=== PATIENT | female | born 1960 | race Two or more races ===

== ENCOUNTER 2018-10-25 10:14 | Emergency (ER) | payer BC ==
[2018-10-25 10:57] VITALS: BP 93/48
--- NOTE | 2018-10-25 11:27 | UC ---
Complaint Female HPI - HPI Summary HPI Summary: Patient has been on Augmentin for a right ear infection and the past 24 hours she has developed some burning on urination, urgency. She denies any fever or chills. She denies any abnormal vaginal discharge. - History Of Current Complaint Chief Complaint: UCGeneralIllness Stated Complaint: URINARY ISSUE Time Seen by Provider: 10/25/18 11:06 Hx Obtained From: Patient Hx Last Menstrual Period: Years ago. ?: No Onset/Duration: Gradual Onset Timing: Constant Severity Initially: Mild Severity Currently: Mild Pain Intensity: 4 Character: Burning - Burning on urination and frequency. Aggravating Factor(s): Urination Alleviating Factor(s): Nothing Associated Signs And Symptoms: Positive: Negative - Allergies/Home Medications Allergies/Adverse Reactions: Allergies Allergy/AdvReac Type Severity Reaction Status Date / Time acetaminophen [From Vicodin] Allergy Hives Verified 10/25/18 10:59 clindamycin Allergy Hives Verified 10/25/18 10:59 hydrocodone [From Vicodin] Allergy Hives Verified 10/25/18 10:59 pseudoephedrine Allergy Hives Verified 10/25/18 11:00 Sulfa (Sulfonamide Allergy Hives Verified 10/25/18 11:00 Antibiotics) LATEX Allergy Rash Uncoded 05/01/16 16:39 PMH/Surg Hx/FS Hx/Imm Hx Previously Healthy: Yes Other History Of: Negative For: HIV, Hepatitis B, Hepatitis C - Surgical History Surgical History: Yes Surgery Procedure, Year, and Place: . lt foot surgery. rt breast LIPOMA removal. DENTAL IMPLANTS - Family History Known Family History: Negative: Cardiac Disease, Hypertension, Diabetes - Social History Alcohol Use: Rare Substance Use Type: None Smoking Status (MU): Never Smoked Tobacco - Immunization History Most Recent Influenza Vaccination: NEVER Most Recent Tetanus Shot: UTD Review of Systems All Other Systems Reviewed And Are Negative: Yes ENT: Positive: Other - Started Augmentin 4 days ago for a right ear infection. Gastrointestinal: Positive: Diarrhea - Patient has had some diarrhea as a result of being on Augmentin for an ear infection. Genitourinary: Positive: Dysuria, Frequency, Urgency. Negative: Hematuria Is Patient Immunocompromised?: No Physical Exam Triage Information Reviewed: Yes Appearance: Well-Appearing, No Pain Distress, Well-Nourished Vital Signs: Initial Vital Signs Temp 98 F 10/25/18 10:54 Pulse 96 10/25/18 10:54 Resp 16 10/25/18 10:54 BP 93/48 10/25/18 10:54 Pulse Ox 100 10/25/18 10:54 Vital Signs Reviewed: Yes Eye Exam: Normal ENT Exam: Normal ENT: Positive: TMs normal Neck exam: Normal Respiratory Exam: Normal Cardiovascular Exam: Normal Abdominal Exam: Normal Abdomen Description: Positive: Nontender, No Organomegaly, Soft Bowel Sounds: Positive: Present Musculoskeletal Exam: Normal Neurological Exam: Normal Psychological Exam: Normal Skin Exam: Normal Complaint Female Dx - Course Course Of Treatment: Patient has been comfortable here. Because she has been on AZO causes urine discoloration the urine will be sent for a culture. At this point because she' s been on the Augmentin for 4 days I believe perhaps she may have a vaginal yeast infection. I'm going to treat her with Diflucan 1 tablet today and repeat in one week for now continued symptoms. She will wait for the urine culture report. She can continue her Augmentin although I gave her the choice since her ear looks completely normal and she would prefer to continue the antibiotic. - Differential Dx/Diagnosis Provider Diagnosis: Yeast cystitis Discharge - Sign-Out/Discharge Documenting (check all that apply): Patient Departure All imaging exams completed and their final reports reviewed: No Studies - Discharge Plan Condition: Fair Disposition: HOME Prescriptions: Fluconazole 150 MG TAB* [Diflucan 150 MG TAB*] 150 mg PO UC ONCE 1 Days #2 tablet Patient Education Materials: Yeast Infection (ED) Referrals: Jodi Martinez MD [Primary Care Provider] - Additional Instructions: Continue taking your antibiotic with food. Increase fluids. We will call you with the urine culture results if it shows that you need another antibiotic. Take the Diflucan today and then repeat in 1 week from now if you have continued symptoms. Follow-up with your primary care provider in 3 or 4 days if no improvement. - Billing Disposition and Condition Condition: FAIR Disposition: Home - Attestation Statements Provider Attestation: I was available for consult. This patient was seen by the TERRI. The patient was not presented to, seen by, or examined by me. -Roland
== END 2018-10-25 11:32 | disposition home or self-care (01) ==
LOC: UCEAST 10:14
DX: B37.41 Candidal cystitis and urethritis (principal); Z88.3 Allergy status to other anti-infective agents; Z88.6 Allergy status to analgesic agent; Z88.2 Allergy status to sulfonamides; Z88.8 Allergy status to other drugs, medicaments and biological substances; Z91.040 Latex allergy status
CPT/HCPCS: 87086; 99212; G0463

== ENCOUNTER 2019-04-19 10:32 | Emergency (ER) | payer BC ==
--- OUTSIDE RECORDS SUMMARY | 2019-04-19 11:07 | XMS REPORT | Continuity of Care Document ---
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 Onset: 09/06/2017 Body mass index 20-24 - normal ROSE Cole Onset: 12/27/2016 Body mass index 20-24 - normal Matthew Pierre M.D. Onset: 05/28/2016 Immunization Matthew Pierre M.D. Onset: 05/28/2016 Allergic rhinitis ROSE Ocasio Onset: 10/07/2015 Allergic rhinitis due to animals ROSE Ocasio Onset: 10/07/2015 Exacerbation of intermittent asthma ROSE Ocasio Onset: 10/07/2015 Body Mass Index Between 19-24 Adult Matthew Pierre M.D. Onset: 02/14/2015 Urticaria Matthew Pierre M.D. Onset: 02/14/2015 Allergic rhinitis due to pollen Matthew Pierre M.D. Onset: 02/14/2015 Allergic asthma without status asthmaticus Matthew Pierre M.D. Onset: 2014 Social History Type Date Description Comments Sex Unknown ETOH Use Occasionally consumes alcohol Tobacco Use Start: Unknown End: Patient is a former smoker Unknown Recreational Drug Use Denies Drug Use Allergies, Adverse Reactions, Alerts Active Allergies Reaction Severity Comments Date Sulfa 11/27/2007 Clindamycin Urticaria 02/14/2015 vicoden Urticaria 02/14/2015 Pseudoephedrine Urticaria, 02/14/2015 Doxycycline Nausea and Vomiting Itching 02/14/2015 Medications Active Medications SIG Qnty Indications Ordering Date Provider Albuterol Sulfate use every 4-6 hours 75ml Z23 Tesha Jose Miguellamberto, 04/16/2019 as needed [employer] 1.25mg/3ML Nebulizer Epinephrine use for anaphyalxis 2units Tesha Zapata, 02/19/2017 [employer]CE[employer] 0.3mg/0.3ML Solution Auto-Inject Albuterol Sulfate use via nebulizer 1box J45.21 Matthew Pierre, 10/07/2015 every 4-6 hours as M.D. (5mg/ML) 0.5% needed for wheeze, Nebulizer chest tightness, cough, shortness of breath Ventolin HFA inhale 2 puffs by 18units J45.20 Tesha Zapata, 02/14/2015 mouth every 4 hours [employer]CE[employer]-C 108(90Base) mcg/Act as needed Aerosol Simvastatin Stevanoelijah, 10mg MD Jodi Tablets Fluticasone Michelle, Propionate MD Jodi 50mcg/Act Suspension Vitamin D High 2 capsules once a Unknown Potency day 1000Unit Capsules Zyrtec Allergy 1 by mouth every Unknown 10mg day Capsules Sinus Rinse Kit uad Unknown Packet Ranitidine 150 1 by mouth twice a Unknown Maximum Strength day 150mg Tablets Medications Administered in Office Medication SIG Qnty Indications Ordering Provider Date Injection Allergy Injection 04/06/2019 Injection Injection Allergy Injection 03/18/2019 Injection Injection Allergy Injection 03/04/2019 Injection Injection Allergy Injection 02/06/2019 Injection Injection Allergy Injection 01/22/2019 Injection Injection Allergy Injection 01/09/2019 Injection Injection Allergy Injection 12/25/2018 Injection Injection Allergy Injection 12/04/2018 Injection Injection Allergy Injection 11/20/2018 Injection Injection Allergy Injection 10/31/2018 Injection Injection Allergy Injection 09/25/2018 Injection Injection Allergy Injection 09/11/2018 Injection Injection Allergy Injection 08/11/2018 Injection Injection Allergy Injection 08/01/2018 Injection Injection Allergy Injection 06/16/2018 Injection Injection Allergy Injection 06/02/2018 Injection Injection Allergy Injection 05/14/2018 Injection Injection Allergy Injection 05/05/2018 Injection Injection Allergy Injection 03/07/2018 Injection Injection Allergy Injection 02/03/2018 Injection Injection Allergy Injection 01/23/2018 Injection Injection Allergy Injection 12/25/2017 Injection Injection Allergy Injection 12/02/2017 Injection Injection Allergy Injection 11/18/2017 Injection Injection Allergy Injection 10/14/2017 Injection Injection Allergy Injection 08/05/2017 Injection Injection Allergy Injection 06/17/2017 Injection Injection Allergy Injection 05/17/2017 Injection Injection Allergy Injection 04/19/2017 Injection Injection Allergy Injection 03/29/2017 Injection Injection Chaitanya Og M.D. 03/13/2017 Injection Injection Allergy Injection 03/13/2017 Injection Injection Allergy Injection 02/18/2017 Injection Injection Allergy Injection 02/04/2017 Injection Injection Allergy Injection 01/18/2017 Injection Injection Allergy Injection 12/07/2016 Injection Injection Allergy Injection 11/30/2016 Injection Injection Allergy Injection 10/26/2016 Injection Injection Allergy Injection 09/27/2016 Injection Injection Allergy Injection 08/31/2016 Injection Injection Allergy Injection 08/10/2016 Injection Injection Allergy Injection 07/27/2016 Injection Injection Allergy Injection 07/05/2016 Injection Injection Allergy Injection 06/25/2016 Injection Injection Allergy Injection 06/08/2016 Injection Injection Allergy Injection 05/25/2016 Injection Injection Allergy Injection 05/17/2016 Injection Injection Allergy Injection 03/30/2016 Injection Injection Allergy Injection 03/21/2016 Injection Injection Allergy Injection 03/12/2016 Injection Injection Allergy Injection 02/29/2016 Injection Injection Allergy Injection 02/15/2016 Injection Injection Allergy Injection 02/06/2016 Injection Injection Allergy Injection 01/16/2016 Injection Injection Allergy Injection 01/02/2016 Injection Injection Allergy Injection 12/23/2015 Injection Injection Allergy Injection 12/16/2015 Injection Injection Allergy Injection 12/08/2015 Injection Injection Allergy Injection 12/01/2015 Injection Injection Allergy Injection 11/24/2015 Injection Injection Allergy Injection 11/07/2015 Injection Injection Allergy Injection 10/27/2015 Injection Injection Allergy Injection 10/14/2015 Injection Injection Allergy Injection 10/07/2015 Injection Injection Allergy Injection 09/02/2015 Injection Injection Allergy Injection 2015 Injection Injection Allergy Injection 08/15/2015 Injection Injection Allergy Injection 08/11/2015 Injection Injection Allergy Injection 08/05/2015 Injection Injection Allergy Injection 07/18/2015 Injection Injection Allergy Injection 07/07/2015 Injection Injection Allergy Injection 07/01/2015 Injection Injection Allergy Injection 06/20/2015 Injection Injection Allergy Injection 06/08/2015 Injection Injection Allergy Injection 06/02/2015 Injection Injection Allergy Injection 05/09/2015 Injection Injection Allergy Injection 04/27/2015 Injection Injection Allergy Injection 04/18/2015 Injection Injection Allergy Injection 04/13/2015 Injection Injection Allergy Injection 04/07/2015 Injection Injection Allergy Injection 03/14/2015 Injection Injection Allergy Injection 03/07/2015 Injection Injection Allergy Injection 02/28/2015 Injection Injection Allergy Injection 02/21/2015 Injection Immunizations CPT Code Status Date Vaccine Lot # [id number] Given Unknown Influenza Vaccine 51620 Given Unknown Influenza Vaccine Vital Signs Date Vital Result Comment 04/16/2019 2:48pm Height 58.5 inches 4'10.50" Weight 112.00 lb Weight 50.803 kg Respiratory Rate 22 /min Heart Rate 76 /min O2 % BldC Oximetry 97 % BP Systolic 103 mmHg BP Diastolic 57 mmHg Asthma Control Test 23 BMI (Body Mass Index) 23.0 kg/m2 03/07/2018 4:37pm Height 58.5 inches 4'10.50" Weight 112.00 lb Weight 50.803 kg Respiratory Rate 20 /min Heart Rate 66 /min O2 % BldC Oximetry 97 % BP Systolic 103 mmHg BP Diastolic 61 mmHg Asthma Control Test 23 BMI (Body Mass Index) 23.0 kg/m2 Results Description No Information Available Procedures Date Code Description Status 04/16/2019 50896 Pre PFT Completed 04/06/2019 50408 Extract 1-10 Completed 04/06/2019 50889 Injection Completed 03/18/2019 78776 Injection Completed 03/04/2019 53804 Injection Completed 02/06/2019 94540 Injection Completed 01/22/2019 98895 Injection Completed 01/09/2019 98011 Injection Completed 12/25/2018 95929 Injection Completed 12/04/2018 51539 Injection Completed 11/20/2018 39864 Injection Completed 10/31/2018 22133 Injection Completed Medical Devices Description No Information Available Encounters Type Date Location Provider Dx Diagnosis Office Visit 04/16/2019 Ratna [place] Encounter for 2:40p [employer]CE[employer]-[facility] immunization J30.1 Allergic rhinitis due to pollen J30.2 Other seasonal allergic rhinitis J30.81 Allergic rhinitis due to animal (cat) (dog) hair and dander J30.89 Other allergic rhinitis J45.20 Mild intermittent asthma, uncomplicated Assessments Date Code Description Provider 04/16/2019 Z23 Encounter for immunization [facility]ha [facility]apata [facility] 04/16/2019 J30.1 Allergic rhinitis due to pollen Teshamellisa Zapata, [facility] 04/16/2019 J30.2 Other seasonal allergic rhinitis Teshaerica Zapata, [facility] 04/16/2019 J30.81 Allergic rhinitis due to animal (cat) Tesha Zapata, [facility] (dog) hair and dander 04/16/2019 J30.89 Other allergic rhinitis Teshamellisa Zapata, [facility] 04/16/2019 J45.20 Mild intermittent asthma, uncomplicated Teshaerica Zapata, [facility] 04/06/2019 J30.1 Allergic rhinitis due to pollen Chaitanya Og M.D. 04/06/2019 J30.1 Allergic rhinitis due to pollen Allergy Injection 04/06/2019 J30.2 Other seasonal allergic rhinitis Chaitanya Og M.D. 04/06/2019 J30.2 Other seasonal allergic rhinitis Allergy Injection 04/06/2019 J30.81 Allergic rhinitis due to animal (cat) Chaitanya Og M.D. (dog) hair and dander 04/06/2019 J30.81 Allergic rhinitis due to animal (cat) Allergy Injection (dog) hair and dander 04/06/2019 J30.89 Other allergic rhinitis Chaitanya Og M.D. 04/06/2019 J30.89 Other allergic rhinitis Allergy Injection 03/18/2019 J30.1 Allergic rhinitis due to pollen Chaitanya Og M.D. 03/18/2019 J30.1 Allergic rhinitis due to pollen Allergy Injection 03/18/2019 J30.2 Other seasonal allergic rhinitis Chaitanya Og M.D. 03/18/2019 J30.2 Other seasonal allergic rhinitis Allergy Injection 03/18/2019 J30.81 Allergic rhinitis due to animal (cat) Chaitanya Og M.D. (dog) hair and dander 03/18/2019 J30.81 Allergic rhinitis due to animal (cat) Allergy Injection (dog) hair and dander 03/18/2019 J30.89 Other allergic rhinitis Chaitanya Og M.D. 03/18/2019 J30.89 Other allergic rhinitis Allergy Injection 03/04/2019 J30.1 Allergic rhinitis due to pollen Chaitanya Og M.D. 03/04/2019 J30.1 Allergic rhinitis due to pollen Allergy Injection 03/04/2019 J30.2 Other seasonal allergic rhinitis Chaitanya Og M.D. 03/04/2019 J30.2 Other seasonal allergic rhinitis Allergy Injection 03/04/2019 J30.81 Allergic rhinitis due to animal (cat) Chaitanya Og M.D. (dog) hair and dander 03/04/2019 J30.81 Allergic rhinitis due to animal (cat) Allergy Injection (dog) hair and dander 03/04/2019 J30.89 Other allergic rhinitis Chaitanya Og M.D. 03/04/2019 J30.89 Other allergic rhinitis Allergy Injection 02/06/2019 J30.1 Allergic rhinitis due to pollen Chaitanya Og M.D. 02/06/2019 J30.1 Allergic rhinitis due to pollen Allergy Injection 02/06/2019 J30.2 Other seasonal allergic rhinitis Chaitanya Og M.D. 02/06/2019 J30.2 Other seasonal allergic rhinitis Allergy Injection 02/06/2019 J30.81 Allergic rhinitis due to animal (cat) Chaitanya Og M.D. (dog) hair and dander 02/06/2019 J30.81 Allergic rhinitis due to animal (cat) Allergy Injection (dog) hair and dander 02/06/2019 J30.89 Other allergic rhinitis Chaitanya Og M.D. 02/06/2019 J30.89 Other allergic rhinitis Allergy Injection 01/22/2019 J30.1 Allergic rhinitis due to pollen Chaitanya Og M.D. 01/22/2019 J30.1 Allergic rhinitis due to pollen Allergy Injection 01/22/2019 J30.2 Other seasonal allergic rhinitis Chaitanya Og M.D. 01/22/2019 J30.2 Other seasonal allergic rhinitis Allergy Injection 01/22/2019 J30.81 Allergic rhinitis due to animal (cat) Chaitanya Og M.D. (dog) hair and dander 01/22/2019 J30.81 Allergic rhinitis due to animal (cat) Allergy Injection (dog) hair and dander 01/22/2019 J30.89 Other allergic rhinitis Chaitanya Og M.D. 01/22/2019 J30.89 Other allergic rhinitis Allergy Injection 01/09/2019 J30.1 Allergic rhinitis due to pollen Chaitanya Og M.D. 01/09/2019 J30.1 Allergic rhinitis due to pollen Allergy Injection 01/09/2019 J30.2 Other seasonal allergic rhinitis Chaitanya Og M.D. 01/09/2019 J30.2 Other seasonal allergic rhinitis Allergy Injection 01/09/2019 J30.81 Allergic rhinitis due to animal (cat) Chaitanya Og M.D. (dog) hair and dander 01/09/2019 J30.81 Allergic rhinitis due to animal (cat) Allergy Injection (dog) hair and dander 01/09/2019 J30.89 Other allergic rhinitis Chaitanya Og M.D. 01/09/2019 J30.89 Other allergic rhinitis Allergy Injection 12/25/2018 J30.1 Allergic rhinitis due to pollen Chaitanya Og M.D. 12/25/2018 J30.1 Allergic rhinitis due to pollen Allergy Injection 12/25/2018 J30.2 Other seasonal allergic rhinitis Chaitanya Og M.D. 12/25/2018 J30.2 Other seasonal allergic rhinitis Allergy Injection 12/25/2018 J30.81 Allergic rhinitis due to animal (cat) Chaitanya Og M.D. (dog) hair and dander 12/25/2018 J30.81 Allergic rhinitis due to animal (cat) Allergy Injection (dog) hair and dander 12/25/2018 J30.89 Other allergic rhinitis Chaitanya Og M.D. 12/25/2018 J30.89 Other allergic rhinitis Allergy Injection 12/04/2018 J30.1 Allergic rhinitis due to pollen Chaitanya Og M.D. 12/04/2018 J30.1 Allergic rhinitis due to pollen Allergy Injection 12/04/2018 J30.2 Other seasonal allergic rhinitis Chaitanya Og M.D. 12/04/2018 J30.2 Other seasonal allergic rhinitis Allergy Injection 12/04/2018 J30.81 Allergic rhinitis due to animal (cat) Chaitanya Og M.D. (dog) hair and dander 12/04/2018 J30.81 Allergic rhinitis due to animal (cat) Allergy Injection (dog) hair and dander 12/04/2018 J30.89 Other allergic rhinitis Chaitanya Og M.D. 12/04/2018 J30.89 Other allergic rhinitis Allergy Injection 11/20/2018 J30.1 Allergic rhinitis due to pollen Chaitanya Og M.D. 11/20/2018 J30.1 Allergic rhinitis due to pollen Allergy Injection 11/20/2018 J30.2 Other seasonal allergic rhinitis Chaitanya Og M.D. 11/20/2018 J30.2 Other seasonal allergic rhinitis Allergy Injection 11/20/2018 J30.81 Allergic rhinitis due to animal (cat) Chaitanya Og M.D. (dog) hair and dander 11/20/2018 J30.81 Allergic rhinitis due to animal (cat) Allergy Injection (dog) hair and dander 11/20/2018 J30.89 Other allergic rhinitis Chaitanya Og M.D. 11/20/2018 J30.89 Other allergic rhinitis Allergy Injection 10/31/2018 J30.1 Allergic rhinitis due to pollen Chaitanya Og M.D. 10/31/2018 J30.1 Allergic rhinitis due to pollen Allergy Injection 10/31/2018 J30.2 Other seasonal allergic rhinitis Chaitanya Og M.D. 10/31/2018 J30.2 Other seasonal allergic rhinitis Allergy Injection 10/31/2018 J30.81 Allergic rhinitis due to animal (cat) Chaitanya Og M.D. (dog) hair and dander 10/31/2018 J30.81 Allergic rhinitis due to animal (cat) Allergy Injection (dog) hair and dander 10/31/2018 J30.89 Other allergic rhinitis Chaitanya Og M.D. 10/31/2018 J30.89 Other allergic rhinitis Allergy Injection Plan of Treatment 04/16/2019 - SHIRLEY Cole-CZ23 Encounter for iyneygjcngerB76.1 Allergic rhinitis due to suljbiK25.2 Other seasonal allergic nucixrypV90.81 Allergic rhinitis due to animal (cat) (dog) hair and rifkkhV21.89 Other allergic qbitmnpfU29.20 Mild intermittent asthma, uncomplicatedNew Medication:Albuterol Sulfate 1.25 mg/3MLRecommendations:Continue all medications as prescribed.Refrain from wearing perfumes/scented colognes while visitingour office. Use the nebulizer tonight for the chest congestion. Call tomorrow if develop fever or colored mucous Continue montelukast 1 daily Fluticasone nasal spray as needed. Ventolin 2 puffs every 4 hours for cough, shortness of breath, chest congestion or wheezing.Monitor Albuterol use. If using more than 2x/week, please call the office as your asthma medications may need to be adjusted. Use the Epipen as needed PFT done today. Pulmonary Function Studies are done by exhaling (blowing) into a machine to detect an asthmatic condition or other lung problem. Results reviewed with the patient and was normal. Functional Status Description No Information Available Mental Status Description No Information Available Referrals Description No Information Available
--- OUTSIDE RECORDS SUMMARY | 2019-04-19 11:07 | XMS REPORT | Continuity of Care Document ---
:1960 External Reference #:[id number] Author Name Oleg Doty, OD Address [address] [place] [address] Care Team Providers Name Role Phone Michelle TOSCANO, Jodi Care Team Information Allergist Immunologist [phone] Problems Active Problems Provider Date Allergic rhinitis Onset: 11/09/2014 Anxiety Onset: 11/09/2014 Depression screening Onset: 10/09/2017 Enthesopathy of knee Onset: 12/09/2014 H/O: hematuria Onset: 11/09/2014 Hyperlipidemia Onset: 11/09/2014 Hypertension screening Onset: 10/09/2017 Sinusitis Onset: 11/09/2014 Social History Type Date Description Comments Sex Unknown ETOH Use Occasionally consumes alcohol Tobacco Use Start: Unknown Patient has never smoked Smoking Status Reviewed: 03/11/19 Patient has never smoked Allergies, Adverse Reactions, Alerts Active Allergies Reaction Severity Comments Date Clindamycin 01/20/2019 Latex 01/20/2019 Pseudoephedrine 01/20/2019 Vicodin 01/20/2019 Medications Active Medications SIG Qnty Indications Ordering Date Provider Ranitidine 150 Maximum Take 1 tablet twice Unknown 01/19/2019 Strength a day by oral route 150mg Tablets as needed for 30 days. Simvastatin Take 1 Tablet By Unknown 12/04/2018 10mg Tablets Mouth Every Day Albuterol Sulfate Inhale 3 mL 3 times Unknown 09/22/2015 a day by (2.5mg/3ML) 0.083% nebulization route Nebulizer as needed. Amoxicillin Take 1 tablet twice Unknown 875mg Tablets a day by oral route for 10 days. Ergocalciferol Take 1 Capsule By Unknown [id number] Mouth Once Weekly Capsules Epinephrine Unknown 0.3mg/0.3ML Solution Auto-Inject Ipratropium [place] 2 sprays 3 Unknown 0.06% times a day by Solution intranasal route for 30 days. Fluticasone Propionate Inhale 1 spray every Unknown Nasal [place] Allergy day by intranasal Relief 24- Hour route for 30 days. 50mcg/Act Suspension Ipratropium [place] 2 sprays twice Unknown 0.03% a day by intranasal Solution route. Ventolin HFA Inhale 2 puffs every Unknown 108(90Base) 4 hours by mcg/Act Aerosol inhalation route as needed. Vagifem Unknown 10mcg Tablets History Medications Omeprazole Take 1 Capsule By Mouth Unknown 12/04/2018 - 03/12/[address] Every Day Immunizations Description No Information Available Vital Signs Date Vital Result Comment 03/12/2019 10:01am Intraocular Pressure Right Eye 16 mmHg Intraocular Pressure Left Eye 16 mmHg Results Description No Information Available Procedures Date Code Description Status 03/12/2019 03727 Refraction Completed 03/12/2019 09826 Eye Exam New Intermediate Completed Medical Devices Description No Information Available Encounters Description No Information Available Assessments Date Code Description Provider 03/12/2019 H25.13 Age-related nuclear cataract, bilateral Oleg Warrenon, OD 03/12/2019 H52.13 Myopia, bilateral Oleg Doty, OD 03/12/2019 H10.45 Other chronic allergic conjunctivitis Oleg Doty, OD Plan of Treatment 03/12/2019 - Oleg Doty, ODH25.13 Age-related nuclear cataract, bilateralFollow up:few mos DFE OUH52.13 Myopia, bilateralFollow up:few mos DFE OUH10.45 Other chronic allergic conjunctivitisFollow up:few mos DFE OU Functional Status Description No Information Available Mental Status Description No Information Available Referrals Description No Information Available
--- OUTSIDE RECORDS SUMMARY | 2019-04-19 11:07 | XMS REPORT | Continuity of Care Document ---
:1960 External Reference #:[id number] Author Name Chaitanya Santizo M.D. (transmitted by agent of provider Jenifer Moulton) Address [address] [place] [address] Care Team Providers Name Role Phone Jodi Martinez MD - Internal Care Team Information Flight Manager [phone] Medicine Problems Active Problems Provider Date Localized, primary osteoarthritis of the hand Chaitanya Santizo M.D. Onset: Derangement of knee Chaitanya Santizo M.D. Onset: 02/16/2015 Social History Type Date Description Comments Sex Unknown ETOH Use Occasionally consumes alcohol Tobacco Use Start: Unknown Patient has never smoked Smoking Status Reviewed: 02/18/19 Patient has never smoked Exercise Type/Frequency Exercises regularly Allergies, Adverse Reactions, Alerts Active Allergies Reaction Severity Comments Date Clindamycin 02/16/2015 Sulfa Antibiotics 02/16/2015 Hydrocodone 02/16/2015 Medications Active Medications SIG Qnty Indications Ordering Provider Date Voltaren apply to affected 200gm M18.11 Chaitanya Santizo, 02/18/2019 1% Gel area up to three M.D. times daily Simvastatin 1 by mouth every Unknown 20mg day Tablets Omeprazole 1 by mouth every Unknown 40mg day Capsules Vitamin D3 Unknown 2000Unit Chewtabs Zyrtec Allergy 1 by mouth every Unknown 10mg day Capsules Immunizations Description No Information Available Vital Signs Date Vital Result Comment 03/18/2019 9:13am Height 59 inches 4'11" Weight 108.00 lb Heart Rate 61 /min BP Systolic 100 mmHg BP Diastolic 60 mmHg Body Temperature 97.1 F Pain Level 2 BMI (Body Mass Index) 21.8 kg/m2 02/18/2019 9:16am Height 59 inches 4'11" Weight 108.00 lb Heart Rate 58 /min BP Systolic 98 mmHg BP Diastolic 58 mmHg Body Temperature 97.8 F Pain Level 4 BMI (Body Mass Index) 21.8 kg/m2 Results Description No Information Available Procedures Description No Information Available Medical Devices Description No Information Available Encounters Type Date Location Provider Dx Diagnosis Office Visit 02/18/2019 Orthopedic Chaitanya Santizo, M18.11 [facility]il primary [facility] osteoarth of first carpometacarp joint, r hand Assessments Date Code Description Provider 03/18/2019 M18.11 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 Tate or Bernard if pain increases and needs corticosteriod injection in future if [facility]dev unavailable. Functional Status Description No Information Available Mental Status Description No Information Available Referrals Description No Information Available
[2019-04-19 11:23] VITALS: BP 113/68
--- NOTE | 2019-04-19 12:08 | UC ---
Respiratory Complaint HPI - HPI Summary HPI Summary: started with ST 1 week ago, evolved to sinus pain and congestion and now coughing. OTC cough meds not helping. reports phlegm in throat worsening cough - History of Current Complaint Chief Complaint: UCGeneralIllness Stated Complaint: COUGH Time Seen by Provider: 04/19/19 11:16 Hx Obtained From: Patient Hx Last Menstrual Period: Years ago. Onset/Duration: Gradual Onset Severity Initially: Mild Severity Currently: Mild Pain Intensity: 0 Character: Cough: Nonproductive Associated Signs And Symptoms: Positive: Fever - last week, Nasal Congestion, Sinus Discomfort - Allergies/Home Medications Allergies/Adverse Reactions: Allergies Allergy/AdvReac Type Severity Reaction Status Date / Time clindamycin Allergy Hives Verified 04/19/19 11:16 hydrocodone [From Vicodin] Allergy Hives Verified 04/19/19 11:16 pseudoephedrine Allergy Hives Verified 04/19/19 11:16 Sulfa (Sulfonamide Allergy Hives Verified 04/19/19 11:16 Antibiotics) LATEX Allergy Rash Uncoded 04/19/19 11:16 Home Medications: Home Medications Albuterol HFA INHALER* [Ventolin HFA Inhaler*] 2 puff INH Q6H PRN 04/19/19 [ History Confirmed 04/19/19] raNITIdine HCl [Zantac 75] 75 mg PO DAILY 04/19/19 [History Confirmed 04/19/19] PMH/Surg Hx/FS Hx/Imm Hx Previously Healthy: Yes Endocrine History: Dyslipidemia Respiratory History: Asthma Other History Of: Negative For: HIV, Hepatitis B, Hepatitis C - Surgical History Surgical History: Yes Surgery Procedure, Year, and Place: x2. L foot surgery - Family History Known Family History: Negative: Cardiac Disease, Hypertension, Diabetes - Social History Occupation: Employed Full-time Lives: With Family Alcohol Use: Occasionally Substance Use Type: None Smoking Status (MU): Never Smoked Tobacco - Immunization History Most Recent Influenza Vaccination: NEVER Most Recent Tetanus Shot: UTD Review of Systems All Other Systems Reviewed And Are Negative: Yes Constitutional: Positive: Fatigue Skin: Positive: Negative Eyes: Positive: Negative ENT: Positive: Sore Throat, Sinus Congestion, Sinus Pain/Tenderness Respiratory: Positive: Cough Cardiovascular: Positive: Negative Gastrointestinal: Positive: Negative Neurological: Positive: Headache - frontal area Psychological: Positive: Negative Is Patient Immunocompromised?: No Physical Exam Triage Information Reviewed: Yes Appearance: Well-Appearing, No Pain Distress, Well-Nourished Vital Signs: Initial Vital Signs Temp 98.8 F 04/19/19 11:19 Pulse 67 04/19/19 11:19 Resp 18 04/19/19 11:19 BP 113/68 04/19/19 11:19 Pulse Ox 99 04/19/19 11:19 Vital Signs Reviewed: Yes Eyes: Positive: Conjunctiva Clear ENT: Positive: Pharynx normal, Nasal congestion, TMs normal, Sinus tenderness Respiratory Exam: Normal - persistent dry cough on exam Respiratory: Positive: Lungs clear Cardiovascular Exam: Normal Cardiovascular: Positive: RRR Neurological Exam: Normal Psychological Exam: Normal Skin Exam: Normal Skin: Negative: Rashes Respiratory Course/Dx - Differential Dx/Diagnosis Differential Diagnosis/HQI/PQRI: Bronchitis, Lower Resp Infection, Sinusitis Provider Diagnosis: Sinusitis Discharge ED - Sign-Out/Discharge Documenting (check all that apply): Patient Departure All imaging exams completed and their final reports reviewed: No Studies - Discharge Plan Condition: Stable Disposition: HOME Prescriptions: Amoxicillin/Clavulanate TAB* [Augmentin TAB 875*] 875 mg PO BID #20 tab Patient Education Materials: Sinusitis (ED) Referrals: Jodi Martinez MD [Primary Care Provider] - 2 Days (If no better) Additional Instructions: Rest and drink plenty of fluids start antibiotic and take as prescribed report to ER if your symptoms worsen - Billing Disposition and Condition Condition: STABLE Disposition: Home - Attestation Statements Provider Attestation: I was available for consult. This patient was seen by the TER[facility]. The patient was not presented to , seen by or examined by mt -Cullen Holly MD
== END 2019-04-19 12:20 | disposition home or self-care (01) ==
LOC: UCEAST 10:32
DX: J32.9 Chronic sinusitis, unspecified (principal); E78.5 Hyperlipidemia, unspecified; J45.909 Unspecified asthma, uncomplicated; Z88.2 Allergy status to sulfonamides; Z91.040 Latex allergy status
CPT/HCPCS: 99212; G0463